=== PATIENT | female | born 1955 | race Caucasian/White ===

== ENCOUNTER 2024-05-18 14:32 | Emergency (ER) | payer MEDICARE, OTHER ==
[2024-05-18] MEDS ORDERED: Ibuprofen 100 MG/5 ML UDCUP ONE (15:24)
[2024-05-18] MEDS ORDERED: Acetaminophen 160 MG (5 ML) UDCUP ONE (15:24)
== END 2024-05-18 16:08 | disposition home or self-care (01) ==
LOC: MADERS 14:32
DX: S00.12XA Contusion of left eyelid and periocular area, initial encounter (principal); S40.022A Contusion of left upper arm, initial encounter; F17.210 Nicotine dependence, cigarettes, uncomplicated; W01.198A Fall on same level from slipping, tripping and stumbling with subsequent striking against other object, initial encounter
CPT/HCPCS: 70450